=== PATIENT | male | born 1950 | race Caucasian/White ===

== ENCOUNTER 2019-01-10 12:26 | Observation (INO) | payer MEDICARE ==
[2019-01-10] MEDS ORDERED: Aspirin 325 MG TAB ONE (13:50)
[2019-01-10] MEDS ORDERED: Ondansetron PF 4 MG/2 ML Vial IVP PRN (14:11)
[2019-01-10] MEDS ORDERED: Nitroglycerin 0.4 MG TAB (25 Tab Bottle) PO PRN (14:11)
[2019-01-10] MEDS ORDERED: Ondansetron ODT 4 MG TAB PO PRN (14:11)
[2019-01-10] MEDS ORDERED: Acetaminophen 325 MG TAB PO PRN (14:11)
[2019-01-10] MEDS ORDERED: HYDROcodone/Acetaminophen 5/325 mg Tablet PO PRN (14:11)
--- NOTE | 2019-01-10 15:22 | HP ---
PRIMARY CARE PHYSICIAN: Mayra Frank MD CHIEF COMPLAINT: Weird heartbeat and ill feeling. HISTORY OF PRESENT ILLNESS: A 68-year-old male patient with past medical history significant for frequent PVCs, on metoprolol, who presents to the [facility] due to weird heartbeat, low blood pressure, and ill feeling. The patient reportedly was seen by an orthopedic doctor on January 04 and was started on Naprosyn 500 mg b.i.d. after bilateral knee injections, was seen by Orthopedic actually on Friday, January 04, 2019, and was started on Naprosyn 500 mg p.o. b.i.d. after injection to both knees. The patient started the Naprosyn 500 mg b.i.d. on Friday morning and since then developed diarrhea associated with weird heart beating, palpitations, dizziness, near-syncope, and generalized weakness. He was having up to 8 loose stools per day since commencement of the Naprosyn, hence he stopped it after 2 days and diarrhea subsided. However, palpitations, chest tightness, nausea, occasional dizziness, lightheadedness, and near-syncope continued and earlier today, the patient after taking his metoprolol noticed that his heart rate was down to 30s, hence he went to the ER, where he was seen to have bradycardia and was subsequently transferred over here for further evaluation and treatment. Since commencement of Naprosyn, the patient has been checking his blood pressures due to ill feeling and review of those logs showed that heart rate has been between 30s and 50s with systolic blood pressure between 70s and 110. Note that the patient has been compliant on his metoprolol 25 mg p.o. b.i.d. with last dose being earlier today. Frequent loose stool has subsided. The patient denied abdominal pain, hematochezia, hematemesis, dysuria, hematuria, leg swelling, shortness of breath, cough, headache, change in mental status, fall, or passing out. He, however, admitted to lightheadedness and near passing out. EKG obtained at [facility] showed heart rate of 63 with frequent ectopics. PAST MEDICAL HISTORY: 1. PVCs. 2. Gastroesophageal reflux disease. 3. Arthritis. PAST SURGICAL HISTORY: 1. Right knee arthroscopic examination. 2. Right shoulder rotator cuff surgery. FAMILY HISTORY: Significant for prostate cancer in father as well as breast cancer, CVA, and hypertension in mother. Both parents are late. Sibling (brother had carcinoid tumor). SOCIAL HISTORY: The patient lives with and kids. Never smoker. Denied recreational drug use. The patient wants to be full code. is the surrogate decision maker. ALLERGIES: NO KNOWN DRUG ALLERGIES REPORTED. HOME MEDICATIONS: 1. Metoprolol 25 mg p.o. b.i.d. 2. Ranitidine 25 mg p.o. b.i.d. 3. Naprosyn 500 mg p.o. b.i.d. recently started and has been discontinued due to diarrhea. REVIEW OF SYSTEMS: Twelve-point review of system performed was negative other than pertinent positives and negatives included in the History of Present Illness. PHYSICAL EXAMINATION: VITAL SIGNS: Initial vitals on arrival here in the ER showed blood pressure 105/58, pulse 67, respiratory rate 20, SpO2 of 98% on room air, and temperature 97.2. GENERAL: Healthy-looking middle-age male, in no obvious distress. Afebrile. Anicteric. Acyanotic. HEENT: Normocephalic, atraumatic. Pupils are reacting to light. Oral mucosa is moist. NECK: Supple. Nontender with good range of motion. No masses or lymphadenopathy appreciated. CARDIOVASCULAR: Regular rhythm with frequent ectopics. Bradycardia. Normal heart sounds 1 and 2 with no murmur appreciated. RESPIRATORY: Good air entry bilaterally with no obvious crackle or rhonchi or use of accessory muscles. GASTROINTESTINAL: Obese, soft, nontender, and nondistended with normal bowel sounds. EXTREMITIES: Grossly normal looking, atraumatic with no edema, erythema, or cyanosis. CENTRAL NERVOUS SYSTEM: Conscious, alert, and oriented x3 with appropriate mental status. Cranial nerves II through XII are grossly intact. The patient moves all extremities. DIAGNOSTIC DATA: CBC showed WBC count of 11.5, hemoglobin of 14.7, MCV of 94.3, and platelet of 230. CMP showed sodium 137, potassium 4.1, chloride 106, CO2 of 24, BUN 21, creatinine 1.14, glucose 99, calcium 8.7, total bilirubin 0.6, AST 16, ALT 32, alkaline phosphatase 81, total protein 6.2, albumin 4.1, and globulin 2.1. Initial cardiac markers showed CK 29, troponin less than 0.01, and BNP 303.6. EKG performed at [facility] showed sinus bradycardia with escape ventricular beats. Ventricular beat is 63, but atrial beat is in 30s. Rhythm strip available also showed bigeminy with rate of 60. Chest x-ray showed no acute finding. Heart and mediastinal contours are unremarkable with no pneumothorax, pleural effusion, focal consolidation, or alveolar edema. ASSESSMENT: 1. Symptomatic bradycardia. 2. Near-syncope. 3. Hypotension: Most likely related to hypovolemia from frequent diarrhea illness. 4. Medication-induced diarrhea illness: Resolved with discontinuation of Naprosyn. 5. Medication-induced bradycardia. 6. Premature ventricular contractions of unclear etiology. The patient reportedly has been on metoprolol since 2 years ago for frequent premature ventricular contractions. No further information is noted about this premature ventricular contraction. 7. Volume depletion from recent diarrhea illness. 8. Osteoarthritis of both knees. PLAN: 1. We will admit the patient to telemetry. 2. We will hold metoprolol for now. 3. We will continue antihistamine (Pepcid for gastroesophageal reflux disease). 4. We will start the patient on gentle IV fluid hydration and monitor vitals. 5. We will also check orthostatic vitals. 6. We will rule out acute myocardial infarction with serial troponin. 7. We will get echocardiogram to assess cardiac function. 8. If acute NC is ruled out with serial troponin, we will proceed with nuclear stress test for further risk stratification. 9. We will also consult Cardiology to help in the management of this patient. 10. DVT prophylaxis with Lovenox will be commenced. 11. The patient wants to be full code and spouse is the surrogate decision maker. Job ID: [id number]
[2019-01-10] MEDS: Lactated Ringer's 1,000 ML IV SCH (15:42)
[2019-01-10 15:49] LABS: Troponin I Less than 0.010 ng/mL (< 0.028)
[2019-01-10 15:53] VITALS: BMI 29.5
[2019-01-10 19:13] LABS: Troponin I 0.012 ng/mL (< 0.028)
[2019-01-10] MEDS: Famotidine 20 MG TAB PO SCH (20:21)
[2019-01-11] MEDS: Lactated Ringer's 1,000 ML IV SCH ×2 (01:47→11:26)
[2019-01-11 06:03] LABS: #Basophils 0.1 thou/uL (0.0-0.2); #Eosinphils 0.3 thou/uL (0.0-0.7); #Lymphocytes 2.4 thou/uL (1.20-3.40); #Monocytes 0.6 thou/uL (0.11-0.59); #Neutrophils 4.6 thou/uL (1.40-6.50); %Basophils 0.7 % (0.0-1.0); %Eosinophils 3.5 % (0.0-10.0); %Lymphocytes 30.6 % (21.0-51.0); %Monocytes 7.3 % (0.0-10.0); %Neutrophils 57.9 % (42.0-75.0); Hemoglobin 13.7 g/dL (14.0-18.0); Mean Corpuscular HGB CONC 34.4 g/dL (32.0-36.0); Mean Corpuscular Hemoglobin 33.8 pg (27.0-31.0); Mean Corpuscular Volume 98.3 fL (78.0-98.0); Mean Platelet Volume 6.8 fL (7.4-10.4); Platelet Count 191 thou/uL (130-400); RBC Distribution Width 10.9 % (11.5-14.5); Red Blood Cell (RBC) Count 4.04 mill/uL (4.70-6.10); White Blood Cell (WBC) Count 7.9 thou/uL (4.8-10.8)
[2019-01-11 06:22] LABS: Anion Gap 11 mmol/L (10-20); BUN (Urea Nitrogen) 18 mg/dL (8.4-25.7); Calc. Creatinine Clearance 100 mL/min (70-130); Calcium 8.6 mg/dL (7.8-10.44); Carbon Dioxide 22 mmol/L (23-31); Chloride 107 mmol/L (98-107); Estimated GFR-MDRD 83; Glucose 88 mg/dL (80-115); Sodium 136 mmol/L (136-145)
[2019-01-11] MEDS ORDERED: ADENOSINE 60 MG/20 ML VIAL ONE (07:21)
[2019-01-11] MEDS: Famotidine 20 MG TAB PO SCH (08:56)
[2019-01-11] MEDS ORDERED: Aspirin 325 mg Enteric Coated Tablet PO SCH (09:00)
[2019-01-11] MEDS ORDERED: Enoxaparin Sodium 40 MG/0.4 ML SYRINGE SC SCH (09:00)
--- NOTE | 2019-01-11 12:22 | NM ---
NUCLEAR MEDICINE MYOCARDIAL PERFUSION: DATE: 01/11/2019. HISTORY: Chest pain. TECHNIQUE: SPECT imaging of the left ventricular myocardium is obtained during rest and stress following the int ravenous administration of 9.9 and 31.6 mCi Technetium 99m labeled sestamibi respectively. FINDINGS: EDV is 103 mL, ESV is 48 mL, and left ventricular ejection fraction is 53%. TID is 1.18. Wall motio n appears normal. There is an area of diminished radiotracer activity in the region of the anterior wall distally appro aching the apex. This is also seen involving the apex on the horizontal long axis views as well as i nvolving the distal aspect of the septum. This is felt to primarily be a fixed defect with no signif icant reversibility seen. A fixed defect in this region may be on the basis of soft tissue attenuati on and/or prior infarction. IMPRESSION: 1. No definite reversible defect is seen. There is a fixed defect seen involving the left ventricul ar myocardium as detailed above. 2. Normal left ventricular wall motion. Left ventricular ejection fraction of 53%. POS: OFF
[2019-01-11 12:24] VITALS: TEMP 97.7
[2019-01-11 12:43] VITALS: BP 122/76
--- NOTE | 2019-01-11 13:30 | CON ---
DATE OF CONSULTATION: 01/11/2019 REASON FOR CONSULTATION: Bradycardia and chest pain. HISTORY OF PRESENT ILLNESS: Mr. Mesa is a pleasant 68-year-old white gentleman, who comes to the hospital for not feeling well. He saw his orthopedic surgeon. He received the shot in his knee, which is going to probably need to be replaced soon and was given a prescription for naproxen at 500 mg b.i.d. He started taking it Friday of last week and he developed dizziness, near syncope, weakness, and diarrhea. He stopped his medication two days later and he continued to have this for the next few days. He was not feeling well. He was feeling mildly faint, so they checked his blood pressure, which was fine, but they noted that his heart rate was in the 30s. He has been treated by Dr. Doron Ty in the past with a beta alfonso for PVCs. He has never had a workup on his heart otherwise. His heart rate remained in the 30s, so they transferred him over here. The way they checked his heart rate was with a blood pressure cuff. On the EKG, his heart rate is actually in the upper 50s. He was given IV fluids. He feels much better. He denies any chest pain, tightness, or pressure. Denies any syncope or presyncope since we restored his fluid. PAST MEDICAL HISTORY: 1. PVCs. 2. GERD. 3. Osteoarthritis. SURGICAL HISTORY: 1. Right knee arthroscopy. 2. Right shoulder rotator cuff surgery. FAMILY HISTORY: Father with CVA in the past. Mother with hypertension. Brother with carcinoid tumor. SOCIAL HISTORY: No alcohol, tobacco, or drugs. OUTPATIENT MEDICATIONS: 1. Metoprolol 25 mg b.i.d. 2. Ranitidine 25 mg b.i.d. 3. Naprosyn 500 mg b.i.d. REVIEW OF SYSTEMS: A 12-point review of systems was done and was all negative unless stated in the history of present illness. PHYSICAL EXAMINATION: VITAL SIGNS: Temperature 97.7, pulse 44, respiratory rate 16, sat 97% on room air, and blood pressure 115/70. GENERAL: Awake, alert, and oriented x3. No distress. HEENT: Normocephalic and atraumatic. NECK: Supple. LUNGS: Clear to auscultation. CARDIOVASCULAR: S1 and S2. No S3 or S4. No murmurs. ABDOMEN: Soft. Positive bowel sounds. EXTREMITIES: No edema. SKIN: Warm and dry. LABORATORY DATA: Laboratory work was reviewed. CBC with a white count of 7.9, hemoglobin of 13.7, hematocrit 39, platelet count of 191. Chemistries were unremarkable. Troponin is negative x2. Chest x-ray was reviewed. Nuclear stress test was reviewed, it shows normal LV function 53% with no reversible ischemia. ASSESSMENT/PLAN: 1. Bradycardia. Likely related to premature ventricular contractions and metoprolol. We will stop metoprolol for now. He will need a workup on his premature ventricular contractions. We will plan on doing a 24-hour Holter monitor as an outpatient. No ischemia on stress test. 2. Presyncope. Most likely related to his diarrhea and his volume depletion. He is doing much better. I would put Naprosyn as one of his allergies. RECOMMENDATIONS: 1. Discontinue metoprolol indefinitely. 2. May discharge home at any time from the cardiac perspective. 3. We will set up for followup in one month in the office with preclinic 24-hour Holter monitor to assess his PVC burden. 4. Thank you for letting us to participate in the care of your patient. We will sign off. Please call with any questions. Job ID: [id number]
--- NOTE | 2019-01-11 17:59 | PDOC.EVN ---
Event Note - Event Note Event Note: Discharge summary dictated. #[id number]
--- NOTE | 2019-01-11 18:16 | DIS ---
DATE OF ADMISSION: 01/10/2019 DATE OF DISCHARGE: 01/11/2019 PRIMARY CARE PHYSICIAN: Mayra Frank MD. DISCHARGE DIAGNOSES: 1. Symptomatic bradycardia. 2. Near syncope. 3. Hypotension. 4. Medication-induced diarrhea. 5. Medication-induced bradycardia. 6. Premature ventricular contractures of unclear etiology. 7. Volume depletion. 8. Osteoarthritis of both knees. CONSULTS: Cardiology. HOSPITAL COURSE: A 68-year-old male with known history of frequent PVCs on metoprolol and arthritis, who recently was started on Naprosyn for arthritis, following which he developed diarrhea illness associated with lightheadedness, dizziness, near syncope, and palpitations as well as chest tightness, nausea, and vomiting. The patient had presented to the ER in [place] where he was found to be hypotensive and bradycardic and was subsequently transferred over here. Metoprolol was discontinued, and the patient was treated with IV fluid with prompt improvement in blood pressure. Given history of chest pain, acute myocardial infarction was ruled out with serial troponin. The patient later had stress test which was negative. Cardiology consult was obtained, and it was felt that the bradycardia was due to medication. Cardiology recommended a 24-hour Holter monitoring. The patient also had echocardiogram which showed diastolic dysfunction. He remained stable and was subsequently discharged home to follow with PCP and stockroom attendant. PHYSICAL EXAMINATION: VITAL SIGNS: Temperature 97.7, pulse 39, respiratory rate 16, SpO2 of 97 on room air, blood pressure is 122/76. GENERAL: Male, in no distress. Afebrile. Anicteric. Acyanotic. HEENT: Normocephalic. Atraumatic. Oral mucosa is moist. CARDIOVASCULAR: Regular rhythm with ectopy. Bradycardic. RESPIRATORY: Good air entry bilaterally with no crackle or rhonchi or use of accessory muscles. GI: Obese, soft, nontender, nondistended with normal bowel sounds. EXTREMITIES: Grossly normal looking, atraumatic, with no edema or erythema. RESIDENTIAL TECH: Conscious, alert and oriented x3 with appropriate mental status. Cranial nerves 2 through 12 are grossly intact. DISCHARGE DISPOSITION: Home. DISCHARGE CONDITION: Improved. DISCHARGE FOLLOWUP: 1. With PCP in 1 week. 2. With stockroom attendant in a day for Holter monitoring setup. DISCHARGE MEDICATIONS: 1. Fish oil 1000 mg p.o. b.i.d. 2. Multivitamin once daily. 3. Ranitidine 150 mg p.o. b.i.d. 4. Tylenol p.r.n. as needed. 5. Of note, Naprosyn and metoprolol were discontinued. Job ID: [id number]
== END 2019-01-11 15:23 | disposition home or self-care (01) ==
LOC: ERS 12:26 → 2SW 13:13
PROVIDERS: ADMIT Internal Medicine; ATTEND Internal Medicine
DX: R00.1 Bradycardia, unspecified (principal); T50.905A Adverse effect of unspecified drugs, medicaments and biological substances, initial encounter; R55 Syncope and collapse; I95.9 Hypotension, unspecified; K52.1 Toxic gastroenteritis and colitis; T39.315A Adverse effect of propionic acid derivatives, initial encounter; I49.3 Ventricular premature depolarization; E86.9 Volume depletion, unspecified; M17.0 Bilateral primary osteoarthritis of knee; K21.9 Gastro-esophageal reflux disease without esophagitis; Z79.1 Long term (current) use of non-steroidal anti-inflammatories (NSAID); Z79.899 Other long term (current) drug therapy
CPT/HCPCS: 78452; 80048; 84484; 85025; 93017; 93306; 94760; 96360; 96361 ×2; 99285; A9500; G0378 ×3; 36415; J0153; J1650

== ENCOUNTER 2019-01-27 06:51 | Outpatient (CLI) | payer MEDICARE ==
[2019-01-27 11:48] LABS: #Basophils 0.1 thou/uL (0.0-0.2); #Eosinphils 0.2 thou/uL (0.0-0.7); #Lymphocytes 2.1 thou/uL (1.20-3.40); #Monocytes 0.5 thou/uL (0.11-0.59); #Neutrophils 3.1 thou/uL (1.40-6.50); %Eosinophils 3.6 % (0.0-10.0); %Lymphocytes 35.2 % (21.0-51.0); %Monocytes 7.8 % (0.0-10.0); %Neutrophils 52.3 % (42.0-75.0); Hemoglobin 14.7 g/dL (14.0-18.0); Mean Corpuscular Hemoglobin 34.7 pg (27.0-31.0); Mean Corpuscular Volume 96.3 fL (78.0-98.0); Mean Platelet Volume 6.7 fL (7.4-10.4); Platelet Count 223 thou/uL (130-400); RBC Distribution Width 10.9 % (11.5-14.5); Red Blood Cell (RBC) Count 4.24 mill/uL (4.70-6.10); White Blood Cell (WBC) Count 5.9 thou/uL (4.8-10.8)
[2019-01-27 12:12] LABS: Prothrombin Time 13.1 SEC (12.0-14.7)
[2019-01-27 12:13] LABS: PTT 33.2 SEC (22.9-36.1)
[2019-01-27 12:22] LABS: ALT (SGPT) 23 U/L (8-55); AST (SGOT) 18 U/L (5-34); Albumin 4.5 g/dL (3.4-4.8); Alkaline Phosphatase 64 U/L (40-150); Anion Gap 9 mmol/L (10-20); BUN (Urea Nitrogen) 16 mg/dL (8.4-25.7); Bilirubin, Total 0.8 mg/dL (0.2-1.2); Calc. Creatinine Clearance 0 mL/min (70-130); Calcium 9.6 mg/dL (7.8-10.44); Carbon Dioxide 26 mmol/L (23-31); Cardiac Risk 5.1 (Less than 4.5); Chloride 106 mmol/L (98-107); Cholesterol 190 mg/dl (< 200 Desired); Estimated GFR-MDRD 71; Globulin 2.1 g/dL (2.4-3.5); Glucose 91 mg/dL (80-115); HDL Cholesterol 37 mg/dL (>60 Neg Risk); LDL Cholesterol, Calculated 125 mg/dL; Potassium 4.2 mmol/L (3.5-5.1); Protein, Total 6.6 g/dL (5.8-8.1); Sodium 137 mmol/L (136-145); Triglycerides 140 mg/dL (Less than 150)
--- NOTE | 2019-01-27 17:00 | EKG ---
Test Reason : Blood Pressure : / mmHG Vent. Rate : 049 BPM Atrial Rate : 049 BPM P-R Int : 216 ms QRS Dur : 100 ms QT Int : 422 ms P-R-T Axes : 049 045 041 degrees QTc Int : 381 ms Marked sinus bradycardia with 1st degree A-V block Abnormal ECG No previous ECGs available Confirmed by DR. Sonu SEALS ([id number]) on 01/27/2019 4:59:41 PM Referred By: SHANON Confirmed By:DR. Sonu SEALS
== END 2019-01-27 06:52 | disposition home or self-care (01) ==
LOC: LABBT 06:51
PROVIDERS: ATTEND Internal Medicine Cardiovascular Disease
DX: Z01.818 Encounter for other preprocedural examination (principal); I49.01 Ventricular fibrillation
CPT/HCPCS: 80053; 80061; 85025; 85610; 85730; 93005; 93010

== ENCOUNTER 2019-01-29 08:56 | Day surgery (SDC) | payer MEDICARE ==
[2019-01-27 10:11] VITALS: BMI 29.7
[2019-01-29] MEDS ORDERED: Lidocaine 1% (PF) 30 ML VIAL ONE (09:33)
[2019-01-29] MEDS ORDERED: Nitroglycerin 100MG/250ML BOT 250 ML ONE (09:33)
[2019-01-29] MEDS ORDERED: Heparin 10,000 UNITS/1 ML VIAL ONE (09:33)
[2019-01-29] MEDS ORDERED: Verapamil 5 MG/2 ML VIAL ONE (09:33)
[2019-01-29] MEDS ORDERED: Midazolam HCl 2 mg/2 ml Vial ONE (10:12)
[2019-01-29] MEDS ORDERED: Fentanyl 100 MCG/2 ML VIAL ONE (10:12)
[2019-01-29] MEDS ORDERED: Atropine Sulfate 1 mg/10 ml Syringe ONE (10:23)
[2019-01-29] MEDS ORDERED: DOPamine 400 MG/D5W 250 ML 250 ML ONE (10:24)
[2019-01-29] MEDS ORDERED: Ondansetron PF 4 MG/2 ML Vial ONE (10:40)
[2019-01-29] MEDS ORDERED: Acetaminophen 500 MG TAB ONE ×2 (12:48→12:49)
== END 2019-01-29 14:40 | disposition home or self-care (01) ==
LOC: CCL 08:56
PROVIDERS: ATTEND Internal Medicine Cardiovascular Disease
DX: I49.3 Ventricular premature depolarization (principal); I49.01 Ventricular fibrillation; M19.90 Unspecified osteoarthritis, unspecified site; Z79.1 Long term (current) use of non-steroidal anti-inflammatories (NSAID); Z79.899 Other long term (current) drug therapy; Z91.011 Allergy to milk products
CPT/HCPCS: 93458; 99152; C1769; J0461; J1265; J1644; J2001; J2250; J2405; J3010

== ENCOUNTER 2019-03-23 10:51 | Outpatient (CLI) | payer MEDICARE ==
[2019-03-23 11:58] LABS: Hemoglobin 14.7 g/dL (14.0-18.0); Mean Corpuscular HGB CONC 33.7 g/dL (32.0-36.0); Mean Corpuscular Hemoglobin 32.9 pg (27.0-31.0); Mean Corpuscular Volume 97.6 fL (78.0-98.0); Mean Platelet Volume 6.7 fL (7.4-10.4); Platelet Count 216 thou/uL (130-400); RBC Distribution Width 11.2 % (11.5-14.5); Red Blood Cell (RBC) Count 4.46 mill/uL (4.70-6.10); White Blood Cell (WBC) Count 5.3 thou/uL (4.8-10.8)
[2019-03-23 12:00] LABS: PTT 31.6 SEC (22.9-36.1)
[2019-03-23 12:16] LABS: Anion Gap 10 mmol/L (10-20); BUN (Urea Nitrogen) 14 mg/dL (8.4-25.7); Calc. Creatinine Clearance 0 mL/min (70-130); Calcium 9.8 mg/dL (7.8-10.44); Carbon Dioxide 25 mmol/L (23-31); Chloride 109 mmol/L (98-107); Estimated GFR-MDRD 79; Glucose 96 mg/dL (80-115); Potassium 4.1 mmol/L (3.5-5.1); Sodium 140 mmol/L (136-145)
== END 2019-03-23 10:52 | disposition home or self-care (01) ==
LOC: LABBT 10:51
PROVIDERS: ATTEND Internal Medicine Cardiovascular Disease
DX: Z01.818 Encounter for other preprocedural examination (principal); Z51.81 Encounter for therapeutic drug level monitoring; I49.3 Ventricular premature depolarization; Z79.01 Long term (current) use of anticoagulants
CPT/HCPCS: 80048; 85027; 85610; 85730; 93005; 93010

== ENCOUNTER 2019-03-31 06:36 | Day surgery (SDC) | payer MEDICARE ==
[2019-03-23 10:57] VITALS: BMI 30.9
[2019-03-31] MEDS ORDERED: Fentanyl 100 MCG/2 ML VIAL ONE (07:01)
[2019-03-31] MEDS ORDERED: Heparin (Artline) 500 ML ONE (07:18)
[2019-03-31] MEDS ORDERED: Lidocaine 1% (PF) 30 ML VIAL ONE (07:18)
[2019-03-31] MEDS ORDERED: Heparin 10,000 UNITS/1 ML VIAL ONE (07:19)
[2019-03-31] MEDS ORDERED: Rocuronium Bromide 50 MG/5 ML VIAL ONE (07:59)
[2019-03-31] MEDS ORDERED: SUGAMMADEX SODIUM 500 MG/5 ML VIAL ONE (07:59)
[2019-03-31] MEDS ORDERED: Midazolam HCl 2 mg/2 ml Vial ONE (08:12)
[2019-03-31] MEDS ORDERED: Isoproterenol 0.2 MG/1 ML AMP ONE (09:11)
[2019-03-31] MEDS ORDERED: Propofol 500 MG/50 ML VIAL ONE (09:44)
[2019-03-31] MEDS ORDERED: PROPOFOL 20 ML ONE (11:10)
--- NOTE | 2019-03-31 14:33 | OP ---
DATE OF PROCEDURE: 03/31/2019 PROCEDURE PERFORMED: Electrophysiology study and radiofrequency ablation. REASON FOR PROCEDURE: Mr. Mesa is presenting with frequent palpitations and high-density PVC documented on his recent EKGs and monitor. He has preserved LVEF and no significant coronary artery disease by history. DESCRIPTION OF PROCEDURE: The patient received propofol by anesthesia specialist. After adequate level of sedation achieved, the right femoral venous area was prepped, draped, and anesthetized using subcutaneous lidocaine. Under ultrasound guidance, the right femoral vein was cannulated x2. A decapolar catheter and a ThermoCool SFST catheter were advanced to the right atrium. 3D map of the right atrium was obtained. The decapolar catheter was advanced to the right ventricle , right atrium, His bundle, and CS positions. Pacing, mapping, and recording were performed at each location including pacing the left atrium from the CS. The following findings were noted. Baseline rhythm was sinus rhythm with RR interval of 1087, MA 198, QRS 97, QT 404, AH 125, HV 46 milliseconds. The sinus node recovery time is 1758. Corrected sinus node recovery regular time was 671. AV Wenckebach cycle length was 380 milliseconds. Retrograde Wenckebach cycle length was 380 milliseconds. Concentric retrograde VA conduction was seen with atrial extrastimuli testing. The AV deon ERP was measured about 600/360 milliseconds. Dual AV deon physiology was present. Burst atrial pacing induced a typical isthmus dependent atrial flutter. Following that, the 3D map of the right ventricle was also obtained. Ventricular extrastimuli testing was performed with [address] followed by up to three ventricular extrastimuli was also delivered, decremented to the refractory period. Ventricular ERP was measured at 600/220/210/180 milliseconds. No ventricular tachycardia induced. With atrial pacing a narrow complex SVT was induced. The SVT had a short VA timing and with ventricular overdrive pacing, we were able to observe ABRAHAN response. During the ventricular overdrive pacing, AA advancement seen only after full entrainment of the tachycardia achived through the ventricles. Also, the tachycardia was reinduced from the atrium with burst atrial testing and access to my testing. Proximal to distal, CS activation was observed. The tachycardia cycle length was 350 milliseconds. During Isuprel administration, his tachycardia instantaneously recurred due to frequent PACs. Decision was made to perform a slow pathway modification, which was delivered @ 30 watt . Junctional rhythm was noted during the ablation. Following that, echo beats were observed but the AVNRT was not re-inducible. During further atrial extrastimuli testing, atrial fibrillation and typical atrial flutter was also induced. The atrial flutter was sustained with a cycle length of 240 milliseconds. Radiofrequency of the cavotricuspid isthmus was also performed at 40 farrell, and during ablation, the atrial flutter terminated. Proximal CS pacing demonstrated prolongation of transisthmus time over 130 milliseconds. The typical atrial flutter not observed after these burst atrial pacing on and off Isuprel. Intermittent atrial fibrillation was induced throughout the study, requiring cardioversions to terminate. At the end of the case, very rare PVCs were noted only. CONCLUSION: 1. Successful mapping of inferoseptal premature ventricular contractions superior to the His bundle without affecting His conduction. 2. Inducible atrioventricular deon reentrant tachycardia, eliminated by slow pathway modification. 3. Inducible typical isthmus dependent atrial flutter with successful termination with cavotricuspid isthmus ablation. 4. Frequent premature atrial contractions are noted. 5. Inducible atrial fibrillation, on Isuprel which was shock terminated. 6. Abnormal sinus deon function. 7. No evidence of accessory pathway. 8. No change in cardiac silhouette at the end of the case. The catheter was removed and the patient tolerated the procedure well. PLAN: Continue monitoring for recurrent PVCs and atrial arrhythmias. We could consider anti arrhtyhmics like flecainide vs. further ablation option depending on the nature of arrhythmia observed in the future. Consider loop recorder as well. Job ID: [id number] [facility]
[2019-03-31] MEDS ORDERED: Acetaminophen/Codeine 30-300mg Tablet ONE (14:39)
== END 2019-03-31 16:17 | disposition home or self-care (01) ==
LOC: CCL 06:36
PROVIDERS: ATTEND Internal Medicine Cardiovascular Disease
PROC: 4A023FZ Measurement of Cardiac Rhythm, Percutaneous Approach (ICD-10-PCS; principal; 2019-03-31)
PROC: 4A0234Z Measurement of Cardiac Electrical Activity, Percutaneous Approach (ICD-10-PCS; 2019-03-31)
PROC: 02583ZZ Destruction of Conduction Mechanism, Percutaneous Approach (ICD-10-PCS; 2019-03-31)
DX: I49.3 Ventricular premature depolarization (principal); I48.91 Unspecified atrial fibrillation; I48.92 Unspecified atrial flutter; K21.9 Gastro-esophageal reflux disease without esophagitis; M17.9 Osteoarthritis of knee, unspecified; Z79.899 Other long term (current) drug therapy; Z91.011 Allergy to milk products
CPT/HCPCS: 76942; 92960; 93005; 93010; 93613; 93623; 93653; 93654; C1730; C1732; C1769; J1644; J2001; J2250; J2704; J3010

== ENCOUNTER 2019-10-18 04:36 | Observation (INO) | payer MEDICARE ==
[2019-10-18] MEDS ORDERED: Fentanyl 100 MCG/2 ML VIAL ONE ×2 (04:53→12:29)
[2019-10-18] MEDS ORDERED: Ondansetron PF 4 MG/2 ML Vial ONE ×2 (04:53→13:45)
[2019-10-18] MEDS ORDERED: Piperacillin/Tazobactam 4.5 GM VIAL ONE (05:07)
[2019-10-18] MEDS ORDERED: Ondansetron ODT 4 MG TAB PO PRN (06:48)
[2019-10-18] MEDS ORDERED: Ondansetron PF 4 MG/2 ML Vial IVP PRN (06:48)
[2019-10-18] MEDS ORDERED: Fentanyl 100 MCG/2 ML VIAL SLOW IVP PRN (06:48)
[2019-10-18] MEDS ORDERED: Ketorolac Tromethamine 30 MG/ML VIAL ONE (08:59)
[2019-10-18] MEDS ORDERED: Ketorolac Tromethamine 30 MG/ML VIAL IVP SCH (09:00)
[2019-10-18] MEDS ORDERED: Acetaminophen 500 MG TAB PO SCH (09:00)
[2019-10-18] MEDS ORDERED: Sodium Chloride 0.9% 1,000 ML IV SCH (09:00)
--- NOTE | 2019-10-18 11:00 | HP ---
HISTORY OF PRESENT ILLNESS: Nahum Mesa presents to the emergency room for epigastric right upper quadrant pain with flank radiation. He has suffered nausea and vomiting. He has evaluated in the emergency room. His liver function tests are normal. Lipase is normal. The coagulation studies are normal. White count is 8 and hemoglobin is 14.6. His basic metabolic profile is normal. Liver function tests are normal. He had a chest x-ray that was unremarkable. Abdomen and pelvis CAT scan revealed gallstones and inflammatory changes, normal bile duct caliber. He had a nonobstructing right renal calculus. The patient admitted with intravenous antibiotics. ALLERGIES: LACTOSE. SOCIAL HISTORY: Tobacco, none. Alcohol, rarely. He is retired from [employer] department in 2017. MEDICATIONS: 1. Multivitamins. 2. Metoprolol 100 mg a day. 3. Glucosamine. 4. Fish oil. 5. Famotidine. 6. Aspirin. 7. Acetaminophen. PAST SURGICAL HISTORY: Right total knee replacement, arthroscopy prior to that, right shoulder surgery in 2017, eye lift by Dr. Rox Amador, previous colonoscopy, EGD every 3 years by . He has history of Thomas esophagus, hiatal hernia, and reflux. He does not recall if he has colon polyps. PAST MEDICAL HISTORY: PVCs. He is followed by Dr. Alaniz and Dr. Patel, EP. The patient had a cardiac catheterization in 2019 without any significant coronary artery disease. He had ablation in 2019 and still have some residual arrhythmias dose to control that. FAMILY HISTORY: Father had prostate cancer. Brother, carcinoid tumor, small-bowel resection. Mother, stroke. REVIEW OF SYSTEMS: Ten-point noncontributory otherwise. PHYSICAL EXAMINATION: VITAL SIGNS: Temperature 97.5, pulse 59, respirations 18, blood pressure 139/85. HEENT: Sclerae are nonicteric. SKIN: Nonjaundiced. NEUROLOGIC: Intact. No focal deficits. GCS 15. No lymphadenopathy in neck, axilla, or groins. LUNGS: Clear to auscultation. CARDIAC: Regular rate and rhythm without murmur or gallop. ABDOMEN: Soft. Tenderness in right upper quadrant. Positive Canales's. EXTREMITIES: Unremarkable. LABORATORY DATA: As noted. ASSESSMENT AND PLAN: Acute cholecystitis, cholelithiasis. We recommend laparoscopic video cholecystectomy. Risks of infection, bleeding, visceral and biliary injury explained. He consents. Job ID: [id number]
--- NOTE | 2019-10-18 12:10 | RAD ---
PORTABLE CHEST: HISTORY: Right upper quadrant pain. COMPARISON: 01/10/2019. FINDINGS: The lungs are clear. Heart and mediastinum appear normal. Vasculature normal. IMPRESSION: No acute finding. POS: AGW
[2019-10-18] MEDS ORDERED: Ondansetron HCl/PF 4 MG/2 ML Vial IVP PRN (12:33)
[2019-10-18] MEDS ORDERED: Succinylcholine Chloride 20 MG/ML 10 ml SYRINGE FS ONE (13:45)
[2019-10-18] MEDS ORDERED: PHENYLEPHRINE-NS 100 MCG/ML 10 ML SYRINGE ONE (13:45)
[2019-10-18] MEDS ORDERED: PROPOFOL 200 MG/20 ML VIAL ONE (13:45)
[2019-10-18] MEDS ORDERED: Lidocaine 1% PF 5 ML VIAL ONE (13:45)
[2019-10-18] MEDS ORDERED: Dexamethasone 20 MG/5 ML VIAL ONE (13:45)
[2019-10-18] MEDS ORDERED: Acetaminophen 500 MG TAB PO PRN (13:56)
[2019-10-18] MEDS ORDERED: Ibuprofen 600 MG TAB PO PRN (13:56)
[2019-10-18] MEDS ORDERED: traMADol HCl 50 MG TAB PO PRN ×2 (13:56)
[2019-10-18] MEDS ORDERED: Acetaminophen 325 MG TAB PO PRN (13:58)
--- NOTE | 2019-10-18 14:11 | DIS ---
DATE OF ADMISSION: 10/18/2019 DATE OF DISCHARGE: 10/18/2019 DISCHARGE DIAGNOSES: Cholecystitis, cholelithiasis. PROCEDURES: Ultrasound of the gallbladder, CT scan of the abdomen and pelvis, and laparoscopic video cholecystectomy. HISTORY: A 69-year-old male with a history of what he attributed to reflux, upper abdominal bloating and gas pains and pressure pains occurring intermittently, now presents with severe pain, seen in the emergency room, evaluated, admitted overnight with intravenous antibiotics, taken to the operating room, underwent laparoscopic video cholecystectomy with findings of acute cholecystitis, cholelithiasis. Postoperatively, he in convalescing. Discharged home. Follow up in my office in 2 to 3 weeks. Diet and activity as tolerated. Tylenol and Motrin [id number] for pain, Ultram p.r.n. if necessary. Job ID: [id number]
--- NOTE | 2019-10-18 14:22 | OP ---
DATE OF PROCEDURE: 10/18/2019 PREOPERATIVE DIAGNOSES: 1. Acute cholecystitis. 2. Cholelithiasis. POSTOPERATIVE DIAGNOSES: 1. Acute cholecystitis. 2. Cholelithiasis. PROCEDURE PERFORMED: Laparoscopic video cholecystectomy. ANESTHESIA: General, local with 0.5% Marcaine 30 mL, mixed with 1% Xylocaine with epinephrine 20 mL, 30 mL mixture used volume. ANESTHESIA: General anesthesia. DESCRIPTION OF PROCEDURE: The patient was taken to the operating room where under general anesthesia, abdomen was clipped of hair, prepared with ChloraPrep, and draped in routine fashion. Local anesthetic mixture was infiltrated into the skin and subcutaneous tissue about each port site. Infraumbilical incision made and pneumoperitoneum to 15 mmHg obtained with a Veress needle, replacing with a 5 port, video laparoscope inserted. Right subxiphoid incision was made and 11 port placed, right subcostal incision was made, midclavicular entrance line, 5 port placed. Liver appeared to be normal. Gallbladder was acutely inflamed, edematous, thickened wall. Fundus grasped at the cephalad. Infundibulum grasped and reflected laterally. Cystic artery and duct dissected free. Critical view obtained. Cystic artery and duct double clipped proximally, dividing the gallbladder, dissected free from liver bed, obtaining good hemostasis prior to division of final peritoneal attachments, and gallbladder and multiple stones were removed and submitted to Pathology. Good hemostasis assured with cautery. Irrigant and pneumoperitoneum evacuated. All instruments removed. All skin incisions were approximated with interrupted subdermal 4-[address] [place] glue applied. Job ID: [id number]
--- NOTE | 2019-10-18 16:18 | PDOC.FMACP ---
Advance Care Planning - Problem (1) Palliative care encounter Status: Acute Code(s): Z51.5 - ENCOUNTER FOR PALLIATIVE CARE (2) Cholecystitis Status: Acute Code(s): K81.9 - CHOLECYSTITIS, UNSPECIFIED - Note Participants: patient, palliative care Summary: Advanced Care Planning was discussed. The diagnosis, prognosis and goals of care were discussed. All questions were answered. The Palliative Care Team will be engaged to assist with completion of any outstanding forms that are needed. Advance directive paperwork provided, Mr Mesa was given an opportunity to decline. He did not wish to complete a MPOA as he is and his would be his decision maker if needed. Discussed an alternative and he states it would be his children, however did not wish to complete MPOA. Reviewed Directive to Physician information and provided palliative care team information for any questions. Confirmed wifes information on face sheet, Mr Mesa verified it is accurate. Time Spent (mins): 30
[2019-10-18 16:30] VITALS: BP 132/56; TEMP 96.8
[2019-10-18] MEDS ORDERED: Famotidine 20 MG TAB PO SCH (21:00)
[2019-10-19] MEDS ORDERED: BOSWELLIA SERRA PO SCH (09:00)
[2019-10-19] MEDS ORDERED: GLUCOSAMINE PO SCH (09:00)
[2019-10-19] MEDS ORDERED: [UNRECOGNIZED DRUG - OTHER] PO SCH (09:00)
[2019-10-19] MEDS ORDERED: D3 PO SCH (09:00)
[2019-10-19] MEDS ORDERED: Metoprolol Tartrate 100 MG TAB PO SCH (09:00)
[2019-10-19] MEDS ORDERED: Multivit, Therapeutic 1 TAB PO SCH (09:00)
[2019-10-19] MEDS ORDERED: Fish Oil 1,000 MG CAP PO SCH (09:00)
[2019-10-19] MEDS ORDERED: Aspirin 81 mg Enteric Coated Tablet PO SCH (09:00)
== END 2019-10-18 16:30 | disposition home or self-care (01) ==
LOC: ERS 04:36 → SURG A 06:46
PROVIDERS: ADMIT Specialist; ATTEND Specialist
PROC: 0FT44ZZ Resection of Gallbladder, Percutaneous Endoscopic Approach (ICD-10-PCS; principal; 2019-10-18)
DX: K80.12 Calculus of gallbladder with acute and chronic cholecystitis without obstruction (principal); K21.9 Gastro-esophageal reflux disease without esophagitis; Z79.82 Long term (current) use of aspirin; Z79.899 Other long term (current) drug therapy; Z91.011 Allergy to milk products
CPT/HCPCS: 47562; 71045; 85610; 85730; 88304; 93005; 96365; 96375 ×2; 99285; G0378 ×2; 36415; J1100; J1610; J1885; J1956; J2001; J2405; J2543; J2704; J3010

== ENCOUNTER 2019-11-01 08:48 | Observation (INO) | payer MEDICARE ==
--- NOTE | 2019-11-01 10:01 | ULT ---
EXAM: US Gallbladder RUQ CLINICAL HISTORY: Abdominal pain. Previous cholecystectomy 2 weeks ago. COMPARISON: None. FINDINGS: Pancreas: Obscured by bowel gas Liver:Diffuse echotexture which may be due to hepatic steatosis or hepatocellular disease. Limited ev aluation for hepatic masses and intrahepatic biliary dilatation. Right hepatic lobe measures 15 cm Gallbladder: Surgically absent Canales's sign:Not applicable Portal Vein: Patent. Appropriate directional flow Bile ducts: Imaging evaluation the common bile duct. Visualized common bile duct diameter is 0.45 cm Right kidney: No hydronephrosis. Right kidney measures 10.4 cm in length. IMPRESSION: No acute abnormality.
[2019-11-01] MEDS ORDERED: Ondansetron PF 4 MG/2 ML Vial ONE (10:51)
[2019-11-01] MEDS ORDERED: Fentanyl 100 MCG/2 ML VIAL ONE (12:23)
[2019-11-01] MEDS ORDERED: Sodium Chloride 0.9% 1,000 ML IV SCH (14:40)
[2019-11-01] MEDS ORDERED: Ondansetron ODT 4 MG TAB SL PRN (14:40)
[2019-11-01] MEDS ORDERED: Ondansetron PF 4 MG/2 ML Vial IVP PRN (14:40)
[2019-11-01] MEDS ORDERED: Acetaminophen 325 MG TAB PO PRN (14:40)
[2019-11-01 14:47] VITALS: BMI 31.0
[2019-11-01] MEDS ORDERED: Morphine 4 MG/ML VIAL SLOW IVP PRN (17:22)
[2019-11-01] MEDS ORDERED: hydrALAZINE 20 MG/ML VIAL SLOW IVP PRN (17:22)
[2019-11-01] MEDS ORDERED: Ondansetron ODT 4 MG TAB PO PRN (17:22)
[2019-11-01] MEDS ORDERED: Acetaminophen 500 MG TAB PO PRN (17:22)
[2019-11-01] MEDS: Sodium Chloride 0.9% 1,000 ML IV SCH (20:07)
--- NOTE | 2019-11-01 20:27 | HP ---
PRIMARY CARE PROVIDER: Mayra Frank MD CHIEF COMPLAINT: Abdominal pain. HISTORY OF PRESENT ILLNESS: This is a 69-year-old male, who presents to [facility] Emergency Department complaining of mid epigastric abdominal pain with radiation to the back beginning in the valuation consultant hours of 11/01/2019. The patient's history is significant for recent laparoscopic cholecystectomy on 10/18/2019 due to cholelithiasis. The patient states he has had persistent abdominal discomfort with some fullness to his abdomen after his surgical procedure. The patient admits to regular bowel movements and no dysuria. The patient reports mid epigastric abdominal pain with radiation to the mid stomach and back. The patient underwent evaluation in the emergency room with CT imaging showing no acute biliary obstruction. Lipase was noted at 515 with associated transaminitis. The patient was given intravenous normal saline, Toradol, Zofran, morphine sulfate, and referred to the Hospitalist Service for admission. PAST MEDICAL HISTORY: 1. Cholelithiasis/chronic cholecystitis. 2. Premature ventricular contractions, status post ablation. 3. Hypertension. 4. Thomas's esophagitis. PAST SURGICAL HISTORY: 1. Status post laparoscopic cholecystectomy. 2. Status post EGD. 3. Status post right knee arthroscopy. 4. Status post cardiac ablation. 5. Status post bilateral blepharoplasty. CURRENT MEDICATIONS: 1. Metoprolol tartrate 100 mg p.o. daily. 2. Enteric-coated aspirin 81 mg p.o. daily. 3. Pepcid 20 mg p.o. b.i.d. 4. [place]-3 fatty acids 2000 mg p.o. daily. 5. Multivitamin 1 tablet p.o. daily. 6. Ultram 50 mg p.o. q.6 hours p.r.n. pain. ALLERGIES: TO LACTOSE. FAMILY HISTORY: Father with prostate cancer. Brother with carcinoid tumor with associated small-bowel resection. Mother with history of CVA. SOCIAL HISTORY: Resides in the [place], [place] area. Retired. . No current alcohol, tobacco, or illicit drug use. REVIEW OF SYSTEMS: CONSTITUTIONAL: Negative for weight loss or gain, ability to conduct usual activities. SKIN: Negative for rash, itching. EYES: Negative for double vision, pain. ENT/MOUTH: Negative for nose bleeding, neck stiffness, pain, tenderness. CARDIOVASCULAR: Negative for palpitations, dyspnea on exertion, orthopnea. RESPIRATORY: Negative for shortness of breath, wheezing, cough, hemoptysis, fever or night sweats. GASTROINTESTINAL: Negative for poor appetite, abdominal pain, heartburn, nausea, vomiting, constipation, or diarrhea. GENITOURINARY: Negative for urgency, frequency, dysuria, nocturia. MUSCULOSKELETAL: Negative for pain, swelling. NEUROLOGIC/PSYCHIATRIC: Negative for anxiety, depression. ALLERGY/IMMUNOLOGIC: Negative for skin rash, bleeding tendency. Otherwise negative except as stated per HPI. PHYSICAL EXAMINATION: VITAL SIGNS: Blood pressure 104/62, pulse 72, respiratory rate 18, temperature 97.4 degrees Fahrenheit, O2 saturation 99% on room air. GENERAL APPEARANCE: This is a 69-year-old male, alert and oriented x3, pleasant, conversant, in no acute distress. HEENT: Pupils are equal, round, reactive to light and accommodation. Extraocular muscles are intact. No scleral icterus. No conjunctival injection. Nares patent. OP is clear. Teeth in fair repair. NECK: Supple. No cervical adenopathy. No thyromegaly. No carotid bruits. No JVD appreciated. Cervical spine with full active and passive range of motion. No meningeal signs noted. CHEST: Lungs are clear to auscultation bilaterally. CARDIOVASCULAR: S1, S2 without noted murmur, rub, or gallop. ABDOMEN: Rounded with tenderness to palpation in the mid epigastric region. No palpable mass. Postsurgical changes with laparoscopic incision sites intact. Bowel sounds are positive in all 4 quadrants. EXTREMITIES: Warm and dry with good turgor. No clubbing, cyanosis, or asymmetric edema appreciated. Pulses palpable distally at the dorsalis pedis, posterior tibial, and popliteal arteries bilaterally. Capillary refill less than 2 seconds. NEUROLOGIC: Cranial nerves 2 through 12 are grossly intact. No focal or lateralizing signs appreciated. PERTINENT LABORATORY AND X-RAY FINDINGS: Basic metabolic profile within normal limits. AST 224, ALT 426, total bilirubin 4.6, alkaline phosphatase 180. Triglycerides 140, 01/27/2019. Lipase 515. CT of the abdomen and pelvis dated 11/01/2019, showed no acute intraabdominal process. Postsurgical changes consistent with cholecystectomy. Abdominal ultrasound dated 11/01/2019, showed no acute intraabdominal process. EKG dated 11/01/2019, by my interpretation shows sinus bradycardia with first-degree AV block. Heart rates in the 40s. Normal R-wave progression noted in the precordial leads. Normal axis. No acute ST-T wave changes appreciated. ASSESSMENT AND PLAN: 1. Acute pancreatitis. Suspect biliary dyskinesia with possible biliary sludge. Continue clear liquids as tolerated. Pain control with morphine sulfate intravenously. Serial lipase monitoring. Anticipate improvement clinically with conservative management. If no clinical improvement in the next 24 hours, we will consult GI Service for consideration for ERCP. Check fasting lipid profile in the a.m. 2. Transaminitis. Suspect secondary to biliary dyskinesia or biliary sludge. Serial LFT monitoring. 3. Status post cholecystectomy. Continue supportive management as outlined above. IV fluids with normal saline at 75 mL/h. Pain control with morphine sulfate. 4. Hypertension. Continue metoprolol tartrate 100 mg p.o. daily. 5. Prophylaxis. SCDs while in bed. Pepcid 20 mg p.o. b.i.d. 6. Code status is full. Surrogate medical decision maker is the patient's spouse. Job ID: [id number]
[2019-11-01] MEDS: Ondansetron PF 4 MG/2 ML Vial IVP PRN (22:22)
[2019-11-02] MEDS: Sodium Chloride 0.9% 1,000 ML IV SCH ×3 (00:33→18:26)
[2019-11-02 06:09] LABS: Hemoglobin 13.1 g/dL (14.0-18.0); Hypochromia SLIGHT = 6-15 cells (100X) (0-5/hpf); Lymphocytes 32 % (21-51); MDiff Complete? YES; Mean Corpuscular HGB CONC 34.3 g/dL (32.0-36.0); Mean Corpuscular Hemoglobin 33.7 pg (27.0-31.0); Mean Corpuscular Volume 98.5 fL (78.0-98.0); Mean Platelet Volume 6.5 fL (7.4-10.4); Monocytes 14 % (0-10); Neutrophil 54 % (42-75); Platelet Count 208 thou/uL (130-400); Platelet Morphology Comment Appears Adequate; RBC Distribution Width 11.3 % (11.5-14.5); Red Blood Cell (RBC) Count 3.88 mill/uL (4.70-6.10); White Blood Cell (WBC) Count 3.8 thou/uL (4.8-10.8)
[2019-11-02 06:23] LABS: ALT (SGPT) 323 U/L (8-55); AST (SGOT) 130 U/L (5-34); Albumin 3.8 g/dL (3.4-4.8); Alkaline Phosphatase 186 U/L (40-110); Anion Gap 10 mmol/L (10-20); BUN (Urea Nitrogen) 10 mg/dL (8.4-25.7); Bilirubin, Total 5.1 mg/dL (0.2-1.2); Calc. Creatinine Clearance 100 mL/min (70-130); Calcium 8.8 mg/dL (7.8-10.44); Carbon Dioxide 27 mmol/L (23-31); Cardiac Risk 4.9 (Less than 4.5); Chloride 108 mmol/L (98-107); Cholesterol 176 mg/dl (< 200 Desired); Estimated GFR-MDRD 83; Globulin 2.2 g/dL (2.4-3.5); Glucose 99 mg/dL (80-115); HDL Cholesterol 36 mg/dL (>60 Neg Risk); LDL Cholesterol, Calculated 111 mg/dL; Lipase 19 U/L (8-78); Potassium 3.8 mmol/L (3.5-5.1); Sodium 141 mmol/L (136-145); Triglycerides 143 mg/dL (Less than 150)
--- NOTE | 2019-11-02 10:31 | PDOC.HOSPP ---
- Subjective Encounter Date: 11/02/19 Encounter Time: 10:25 Subjective: f/u for pancreatitis/transaminitis likely due to biliary sludge vs choledocholithiasis. Still with c/o abd pain. - Objective Vital Signs & Weight: Vital Signs (12 hours) Temp Pulse Resp BP BP Pulse Ox 11/02/19 07:28 97.6 F 50 L 20 125/77 95 11/02/19 04:00 97.9 F 56 L 20 124/77 95 11/01/19 23:51 97.7 F 49 L 20 123/73 95 11/01/19 23:03 110/68 Weight Weight 204 lb I&O: 11/01/19 11/02/19 11/03/19 06:59 06:59 06:59 Intake Total 1900 Output Total 800 Balance 1100 Result Diagrams: 11/02/19 05:41 11/02/19 05:41 Additional Labs: Laboratory Tests 11/01/19 11/02/19 05:17 05:41 Total Bilirubin 4.6 H 5.1 H AST 224 H 130 H ALT 426 H 323 H Alkaline Phosphatase 180 H 186 H Laboratory Tests 11/01/19 11/02/19 05:17 05:41 Lipase 515 H 19 Hospitalist ROS - Medication Medications: Active Medications Generic Name Dose Route Start Last Admin Trade Name Freq PRN Reason Stop Dose Admin Sodium Chloride 1,000 mls @ 75 mls/hr 11/01/19 17:22 11/02/19 05:32 Normal Saline 0.9% IV Not Given .[id number] [facility] Morphine Sulfate 4 mg 11/01/19 17:22 11/01/19 22:22 Morphine SLOW IVP 4 mg Q4H PRN Administration Moderate to Severe Pain (6-10) Ondansetron HCl 4 mg 11/01/19 17:22 11/01/19 22:22 Zofran IVP 4 mg Q6H PRN Administration Nausea/Vomiting Pantoprazole Sodium 40 mg 11/02/19 09:00 11/02/19 07:24 Protonix PO 40 mg DAILY SEUN Administration - Exam General Appearance: NAD, awake alert Eye: PERRL, anicteric sclera ENT: normocephalic atraumatic, no oropharyngeal lesions Neck: supple, symmetric, no JVD, no thyromegaly, no lymphadenopathy Heart: RRR, no murmur, no gallops, no rubs, normal peripheral pulses Heart - other findings: S1, S2 Respiratory: CTAB, no wheezes, no rales, no ronchi, normal chest expansion, no tachypnea Gastrointestinal: soft, non-distended, normal bowel sounds, no palpable masses Gastrointestinal - other findings: mild TTP in mid-epigastric region Extremities: no cyanosis, no clubbing, no edema Skin: normal turgor, no lesions Neurological: cranial nerve grossly intact, no new deficit Musculoskeletal: normal tone, normal strength, no muscle wasting Psychiatric: normal affect, A&O x 3 Hosp A/P (1) Acute pancreatitis Code(s): K85.90 - ACUTE PANCREATITIS WITHOUT NECROSIS OR INFECTION, UNSP Status: Acute Qualifiers: Pancreatitis type: biliary Plan: Suspected choledocholithiasis and/or sludge, ERCP today, NPO currently (2) Transaminitis Code(s): R74.0 - NONSPEC ELEV OF LEVELS OF TRANSAMNS & LACTIC ACID DEHYDRGNSE Status: Acute Plan: Secondary to #1 and potential stone/sludge, serial monitoring (3) HTN (hypertension) Code(s): I10 - ESSENTIAL (PRIMARY) HYPERTENSION Status: Chronic Qualifiers: Hypertension type: essential hypertension Qualified Code(s): I10 - Essential (primary) hypertension Plan: Resume home BP regimen (4) Status post cholecystectomy Code(s): Z90.49 - ACQUIRED ABSENCE OF OTHER SPECIFIED PARTS OF DIGESTIVE TRACT Status: Chronic - Plan plan discussed w/ family, social media marketing specialist, out of bed/ambulate, DVT proph w/SCDs Stable currently ERCP today NPO pending ERCP Continue IVF's Pain control with Morphine Sulfate AM lab: CMP
[2019-11-02] MEDS ORDERED: diphenhydrAMINE 50 MG/ML VIAL ONE (11:41)
[2019-11-02] MEDS ORDERED: Lidocaine 1% PF 5 ML VIAL ONE (11:41)
[2019-11-02] MEDS ORDERED: Ondansetron PF 4 MG/2 ML Vial ONE (11:41)
[2019-11-02] MEDS ORDERED: PHENYLEPHRINE-NS 100 MCG/ML 10 ML SYRINGE ONE (11:41)
[2019-11-02] MEDS ORDERED: Rocuronium Bromide 10 MG/ML (10ML VIAL) ONE (11:41)
[2019-11-02] MEDS ORDERED: PROPOFOL 200 MG/20 ML VIAL ONE (11:41)
[2019-11-02] MEDS ORDERED: Ketorolac Tromethamine 30 MG/ML VIAL ONE (11:41)
[2019-11-02] MEDS ORDERED: Dexamethasone 20 MG/5 ML VIAL ONE (11:41)
[2019-11-02] MEDS: Ondansetron PF 4 MG/2 ML Vial IVP PRN (12:18)
[2019-11-02] MEDS ORDERED: Indomethacin 50 MG SUPP ONE (12:50)
[2019-11-02] MEDS ORDERED: Iopamidol 50 ML FS ONE (12:50)
[2019-11-02] MEDS ORDERED: Midazolam HCl 2 mg/2 ml Vial ONE (13:12)
[2019-11-02] MEDS ORDERED: Fentanyl 100 MCG/2 ML VIAL ONE (13:12)
[2019-11-02] MEDS ORDERED: SUGAMMADEX SODIUM 200 MG/2 ML VIAL ONE (13:12)
[2019-11-02] MEDS ORDERED: cefTRIAXone\\ROCEPHIN 2 GM VIAL ONE (13:22)
[2019-11-02] MEDS ORDERED: Sodium Chloride 0.9% 100 ML ONE (13:22)
[2019-11-02] MEDS ORDERED: Ondansetron HCl/PF 4 MG/2 ML Vial IVP PRN (14:57)
--- NOTE | 2019-11-02 15:50 | RAD ---
ERCP INDICATION: Pancreatitis Comparison prior CT the abdomen and pelvis dated 11/01/2019 FINDINGS: The first submitted image demonstrates cannulization of the common bile duct and retrograde opacification. No intraluminal filling defect is grossly evident. Cholecystectomy clips are seen within the right upper quadrant. Subsequent imaging demonstrates further retrograde opacification of the common bile duct with some retrograde opacification of the cystic duct remnant. Again, no intraluminal filling defect or extravasation is noted. Total fluoroscopic time is noted as 6.3 minute s. Total exposure is 318.82 mGy. IMPRESSION: No choledocholithiasis or common bile duct extravasation noted.
--- NOTE | 2019-11-02 16:13 | CON ---
DATE OF CONSULTATION: 11/02/2019 REASON FOR CONSULTATION: Severe abdominal pain, pancreatitis. HISTORY OF PRESENT ILLNESS: Mr. Mesa is a 69-year-old man who presented to the ER with severe epigastric abdominal pain, acute onset yesterday. The pain radiates to the back. There was no associated nausea or vomiting. The patient's blood test was indicative of pancreatitis with serum lipase at 515, associated with elevation of his liver profile. The patient had a cholecystectomy for symptomatic cholelithiasis 2 weeks ago. Intraoperative cholangiogram was not done at that time as his LFT was normal. The patient does not consume any alcohol. He is otherwise without any other GI history or symptoms. PAST MEDICAL HISTORY: 1. Hypertension. 2. History of PVC. 3. Thomas's esophagus, followed by Dr. Cabezas in [place]. PAST SURGICAL HISTORY: 1. Status post cholecystectomy on 10/18/2019 for cholelithiasis. 2. Status post cardiac ablation. 3. Bilateral blepharoplasty. MEDICATIONS AT HOME: Include: 1. Metoprolol. 2. Aspirin. 3. Pepcid. 4. [place]-3 fatty acid. 5. Multivitamin. 6. Ultram as needed for pain. ALLERGIES: NO KNOWN DRUG ALLERGIES. SOCIAL HISTORY: The patient is from [place]. He has no alcohol or tobacco usage. FAMILY HISTORY: Negative for any known GI problem, liver disease, or GI malignancy. Brother with carcinoid tumor involving the small bowel. REVIEW OF SYSTEMS: Ten-point review of system was otherwise negative without any reported symptoms other than mentioned above. PHYSICAL EXAMINATION: VITAL SIGNS: Temperature is 97.6, blood pressure 125/77, pulse of 50. GENERAL: He is alert conversant, does not appear in any distress. HEENT: Anicteric sclerae. Oropharynx is clear and moist. CV: Normal S1 and S2. Regular rate and rhythm. CHEST: Breath sounds. ABDOMEN: Mildly protuberant, soft. There is mild focal tenderness in the medial right upper quadrant. No guarding or rebound. He has active bowel sounds. No distention. No tympany. EXTREMITIES: No edema. LABORATORY DATA: WBCs 3.8, hemoglobin 13.1, and platelet count of 208. Electrolytes within normal range. Creatinine 0.9, bilirubin 5.1, AST 130, ALT of 323, alkaline phosphatase of 186. Triglyceride 143. Serum lipase 19 down from 515. Abdominal ultrasound performed yesterday morning showed a common duct measured 0.45 cm. No other abnormality. ASSESSMENT: A 69-year-old man presented with acute onset of severe upper abdominal pain with evidence of acute pancreatitis, associated with marked elevation of his liver profile. Common duct on ultrasound is only 4.5 mm. However, clinical presentation is typical for biliary pancreatitis, likely from choledocholithiasis. Currently, the patient is doing well. He has resolution of the severe pain with very benign abdomen and lipase back to normal. RECOMMENDATIONS: 1. Proceed with ERCP with possible sphincterotomy. Indication including risk not limited to bleeding, perforation, and pancreatitis were reviewed with Mr. Mesa. All questions answered. 2. Further recommendation to follow pending above findings. Job ID: [id number]
--- NOTE | 2019-11-02 21:08 | OP ---
DATE OF PROCEDURE: 11/02/2019 PROCEDURE PERFORMED: Endoscopic retrograde cholangiopancreatography with papillotomy. PREMEDICATION: Given by Anesthesiology Department. PREPROCEDURE DIAGNOSIS: Severe abdominal pain with elevation in lipase and liver profile suggestive of choledocholithiasis, status post cholecystectomy 2 weeks ago. POSTPROCEDURE DIAGNOSIS: No apparent choledocholithiasis. DESCRIPTION OF PROCEDURE: Written consents were obtained prior to procedure. After adequate sedation, the side-viewing endoscope was advanced down the stomach through the pylorus into the duodenum. The ampulla was visualized and appeared normal. Selective cannulation was performed successfully into the common bile duct. The pancreatic duct was never opacified. Injection contrast showed a uniformly size duct to approximately 6 mm. The intrahepatic biliary tree filled without any abnormality. A sphincterotomy was performed at 12 o'clock position with good hemostasis. A balloon was used to do multiple sweeps through the common bile duct without any obvious extraction of stone; although, some sludge was able to be extracted. Occlusive cholangiogram was then performed and was free of filling defect. The instrument was then removed. There was prompt excretion of contrast. The patient tolerated the procedure well without any complication. ASSESSMENT: 1. No evidence of choledocholithiasis. 2. The patient may have passed a stone when he was admitted with severe abdominal pain that has since resolved. RECOMMENDATIONS: 1. Observe the patient overnight. 2. Can be discharged home in a.m. if the patient does well clinically. Liver profile may be still elevated because of today's occlusive cholangiogram. Job ID: [id number]
[2019-11-03 05:10] VITALS: TEMP 97.9
[2019-11-03 07:25] LABS: ALT (SGPT) 371 U/L (8-55); AST (SGOT) 150 U/L (5-34); Albumin 3.8 g/dL (3.4-4.8); Alkaline Phosphatase 185 U/L (40-110); Anion Gap 11 mmol/L (10-20); BUN (Urea Nitrogen) 16 mg/dL (8.4-25.7); Bilirubin, Total 1.5 mg/dL (0.2-1.2); Calc. Creatinine Clearance 101 mL/min (70-130); Calcium 8.9 mg/dL (7.8-10.44); Carbon Dioxide 25 mmol/L (23-31); Chloride 107 mmol/L (98-107); Estimated GFR-MDRD 84; Globulin 2.4 g/dL (2.4-3.5); Glucose 138 mg/dL (80-115); Potassium 4.1 mmol/L (3.5-5.1); Protein, Total 6.2 g/dL (5.8-8.1); Sodium 139 mmol/L (136-145)
[2019-11-03 08:16] VITALS: BP 123/78
[2019-11-03] MEDS: Sodium Chloride 0.9% 1,000 ML IV SCH (08:46)
--- NOTE | 2019-11-03 18:38 | DIS ---
DATE OF ADMISSION: 11/01/2019 DATE OF DISCHARGE: 11/03/2019 DISCHARGE DIAGNOSES: 1. Acute pancreatitis secondary to biliary sludge, status post ERCP with sphincterotomy. 2. Acute transaminitis secondary to biliary sludge. 3. Abdominal pain secondary to #1, resolving. 4. Hypertension, stable. 5. Status post cholecystectomy. CONSULTATIONS: Dr. Coy with GI Service. PERTINENT LABORATORY AND X-RAY FINDINGS: Total bilirubin ranged between 1.5 to 5.1. AST ranged between 130 to 224, ALT ranged between 323 to 426, triglycerides 143. Lipase ranged between 19 to 515. Abdominal ultrasound dated 11/01/2019, showed no acute intraabdominal process. CT of the abdomen and pelvis dated 11/01/2019, showed changes consistent with previous cholecystectomy. No acute process identified. EGD with ERCP showed no evidence of choledocholithiasis. Sphincterotomy with balloon sweep performed. HOSPITAL COURSE: The patient was admitted to the medical floor after initially presenting with severe abdominal pain with associated transaminitis and elevated lipase consistent with acute pancreatitis. The patient's history is significant for recent cholecystectomy, 10/18/2019. The patient underwent CT and abdominal ultrasound imaging of the abdomen showing no acute process. The patient was evaluated by the GI Service with recommendations to undergo ERCP evaluation, which patient had on 11/02/2019. No specific evidence of retained stones noted during this exam and the patient underwent sphincterotomy with balloon sweep showing a patent common bile duct. Symptomatically, the patient improved with supportive care and the patient overall clinically stabilized. Lipase trend returned to normal, however, transaminitis remained after manipulation of the common bile duct during the ERCP. Overall, the patient did remain clinically stable during the hospital course, tolerating regular oral intake. I have examined the patient at the time of discharge and discussed followup instructions. The patient verbalized understanding and agreement, ready for discharge on 11/03/2019. DISCHARGE MEDICATIONS: 1. Enteric-coated aspirin 81 mg p.o. daily. 2. Pepcid 20 mg p.o. b.i.d. 3. [place]-3 fatty acids 2000 mg p.o. daily. 4. Glucosamine 1 tablet p.o. daily. 5. Metoprolol tartrate 100 mg p.o. daily. 6. Multivitamin 1 tablet p.o. daily. FOLLOWUP: The patient may follow up with Dr. Hayes and to call his office for appointment time and date. The patient may follow up with Dr. Coy with GI Service and to call his office for appointment time and date. CONDITION ON DISCHARGE: Stable. ACTIVITY: Ad-leena. DIET: Heart healthy. CODE STATUS: Full. DISPOSITION: Home, 11/03/2019. TIME SPENT: Total time preparing and coordinating discharge, 32 minutes. Job ID: [id number]
== END 2019-11-03 11:34 | disposition home or self-care (01) ==
LOC: ERS 08:48 → T4-A 14:21
PROVIDERS: ADMIT Family Medicine; ATTEND Family Medicine
PROC: 0F798ZZ Dilation of Common Bile Duct, Via Natural or Artificial Opening Endoscopic (ICD-10-PCS; principal; 2019-11-01)
DX: K83.8 Other specified diseases of biliary tract (principal); K85.90 Acute pancreatitis without necrosis or infection, unspecified; I49.3 Ventricular premature depolarization; I10 Essential (primary) hypertension; Z79.82 Long term (current) use of aspirin; Z79.899 Other long term (current) drug therapy; Z91.011 Allergy to milk products
CPT/HCPCS: 43262; 74330; 76705; 80053 ×2; 80061; 83690; 85007; 85027; 93005; 96361; 96374; 96375; 99285; J1610; 36415; 96376; G0378; J0696; J1100; J1200; J1885; J2001; J2250; J2270; J2405; J2704; J3010; J3490; Q0162; Q9967

== ENCOUNTER 2022-04-03 11:49 | Outpatient (CLI) | payer MEDICARE ==
[2022-04-03 13:01] LABS: Bilirubin Neg (Negative); Blood, Urine Negative (Negative); Clarity Clear (Clear); Glucose, Urine (Dipstick) Normal (Negative); Ketone, Urine Negative (Negative); Leukocyte Negative (Negative); Nitrite Negative (Negative); Protein, Urine (Dipstick) Negative (Neg-Trace); Specific Gravity, Urine 1.025 (1.005-1.030); Urobilinogen Normal mg/dL (Less than 2)
[2022-04-03 13:02] LABS: Hemoglobin 14.4 g/dL (13.5-17.5); Mean Corpuscular HGB CONC 35.6 g/dL (32.0-36.0); Mean Corpuscular Hemoglobin 33.3 pg (27.0-33.0); Mean Corpuscular Volume 93.8 fl (81.2-95.1); Mean Platelet Volume 8.4 fl (7.4-10.4); Platelet Count 246 10x3/uL (150-450); RBC Distribution Width 11.9 % (11.5-14.5); Red Blood Cell (RBC) Count 4.32 10x6/uL (4.32-5.72); White Blood Cell (WBC) Count 10.6 10x3/uL (3.5-10.5)
[2022-04-03 13:15] LABS: Bacteria/HPF None Seen HPF (None Seen); RBC/HPF 0-3 HPF (0-3); Squamous Epithelial 0-3 HPF (0-3); WBC/HPF 0-3 HPF (0-3)
[2022-04-03 13:18] LABS: INR-International Normal Ratio 0.9; PTT 25.7 sec (22.0-33.0); Prothrombin Time 10.3 sec (9.5-12.1)
[2022-04-03 13:33] LABS: Anion Gap 11 mmol/L (10-20); BUN (Urea Nitrogen) 24 mg/dL (8.4-25.7); Calc. Creatinine Clearance 0 mL/min (70-130); Calcium 8.9 mg/dL (7.8-10.44); Carbon Dioxide 27 mmol/L (23-31); Chloride 105 mmol/L (98-107); Estimated GFR 80; Glucose 105 mg/dL (83-110); Potassium 4.4 mmol/L (3.5-5.1); Sodium 139 mmol/L (136-145)
== END 2022-04-03 11:50 | disposition home or self-care (01) ==
LOC: LABBT 11:49
PROVIDERS: ATTEND Urology
DX: Z01.818 Encounter for other preprocedural examination (principal); N20.0 Calculus of kidney
CPT/HCPCS: 80048; 81001; 85027; 85610; 85730; 87086; 93005; 93010

== ENCOUNTER 2022-04-11 07:09 | Day surgery (SDC) | payer MEDICARE ==
[2022-04-10 09:28] VITALS: BMI 30.4
[2022-04-11] MEDS ORDERED: Iopamidol 0 ML ONE ×2 (10:29→11:20)
[2022-04-11] MEDS ORDERED: Ioversol 68 % 50 ML VIAL ONE (10:33)
[2022-04-11] MEDS ORDERED: fentaNYL PF 100 MCG/2 ML SYRINGE ONE (10:39)
[2022-04-11] MEDS ORDERED: Levofloxacin 500 mg/D5W 100 ml Premix Bag ONE (10:51)
[2022-04-11] MEDS ORDERED: PROPOFOL 200 MG/20 ML VIAL ONE (11:06)
[2022-04-11] MEDS ORDERED: Phenylephrine 10 MG/ML VIAL ONE (11:06)
[2022-04-11] MEDS ORDERED: Dexamethasone 20 MG/5 ML VIAL ONE (11:06)
[2022-04-11] MEDS ORDERED: Ondansetron PF 4 MG/2 ML Vial ONE (11:06)
[2022-04-11] MEDS ORDERED: FENTANYL 50 MCG/ML 1 ML VIAL ONE (11:52)
[2022-04-11] MEDS ORDERED: Phenazopyridine HCl 100 MG TAB ONE (11:59)
[2022-04-11] MEDS ORDERED: Oxybutynin 5 MG TAB ONE (11:59)
[2022-04-11] MEDS ORDERED: HYDROcodone/Acetaminophen 5/325 mg Tablet ONE (11:59)
[2022-04-11] MEDS ORDERED: Promethazine HCl 25 MG/ML VIAL ONE (12:33)
== END 2022-04-11 15:40 | disposition home or self-care (01) ==
LOC: SDC 07:09
PROVIDERS: ATTEND Urology
PROC: 0TC68ZZ Extirpation of Matter from Right Ureter, Via Natural or Artificial Opening Endoscopic (ICD-10-PCS; principal; 2022-04-11)
PROC: 0T768DZ Dilation of Right Ureter with Intraluminal Device, Via Natural or Artificial Opening Endoscopic (ICD-10-PCS; 2022-04-11)
DX: N20.1 Calculus of ureter (principal); I44.0 Atrioventricular block, first degree; K21.9 Gastro-esophageal reflux disease without esophagitis; Z79.82 Long term (current) use of aspirin; Z79.899 Other long term (current) drug therapy; Z91.011 Allergy to milk products
CPT/HCPCS: 52356; 82365; 93005; J3010; 88300; 93010; C1769; C2617; J1100; J1956; J2370; J2405; J2550; J2704; Q9967